=== PATIENT | male | born 1975 | race Caucasian/White ===

== ENCOUNTER 2016-07-17 21:12 | Emergency (ER) | payer SELFPAY ==
[~2016-07-17] VITALS: Ht 175.3 cm; Wt 80.0 kg
[2016-07-17 21:17] VITALS: BP 115/82; PULSE 151; RESP 24; TEMP 99.8; O2SAT 96
[2016-07-17 21:21] VITALS: RESP 24; O2SAT 95
[2016-07-17] MEDS ORDERED: SODIUM CHLOR 0.9% 1000 ML INJ 1,000 ML IV ONE (21:21)
[2016-07-17] MEDS ORDERED: LORazepam 2 MG/ML VIAL IVP ONE (21:30)
[2016-07-17] MEDS ORDERED: ONDANSETRON HCL 4 MG/2 ML VIAL IV PUSH ONE (21:30)
--- NOTE | 2016-07-17 21:33 | PD ---
HPI Chief Complaint: OD/ Ingestion Time Seen by Provider: 21:26 Travel History International Travel<30 days: No Contact w/Intl Traveler<30days: No Traveled to known affect area: No History of Present Illness HPI 41-year-old male that presents to the ED for evaluation of possible overdose. Patient states that he has a history of IV drug abuse. Patient apparently shot up what he thinks is heroine. Per ambulance patient was found to be very agitated and very anxious. Patient denies ever having a reaction like this before. Per patient he is not from the area and he recently came here the [facility]. Per the back patient was seeing himself a lot in his head and was given some IV fluids as well as Ativan in route here. He did not lose consciousness but does was acting more bizarre. Patient was found to be profoundly tachycardic with sinus tachycardia in the 150s. Patient was found to have no dilated pupils or any sign of an opiate overdose. Patient has no obvious allergies to medications. Patient denies any pain to me. Patient seems to be interacting possibly with internal stimuli versus hallucinations from medication overdose. History is somewhat limited because of patient's intoxication at this time. He denies any alcohol abuse. He denies any abdominal pain. No leg pain or arm pain. PFSH Past Medical History Medical History: Unable to Obtain Tetanus Vaccination: Unknown Influenza Vaccination: No Past Surgical History Surgical History: Unable to Obtain Social History Alcohol Use: No Tobacco Use: Yes Substance Use: Yes Allergies-Medications (Allergen,Severity, Reaction): Coded Allergies: No Known Allergies (Unverified , 07/17/16) Reported Meds & Prescriptions Reported Meds & Active Scripts Active Active Prescriptions or Reported Medications Unobtainable Review of Systems ROS Limitations: Intoxication General / Constitutional: No: Fever, Chills, Weight Gain, Weight Loss, Other Eyes: No: Diploplia, Blurred Vision, Photophobia, Drainage, Redness, Foreign Body Sensation, Pain, Tearing, Blind Spots, Visual changes, Blindness, Other HENT: No: Headaches, Vertigo, Lightheadedness, Sore Throat, Rhinitis, Rhinorrhea, Congestion, Nosebleed, Neck Stiffness, Neck Pain, Masses, Gingival Bleeding, Dental Difficulties, Ear Discharge, Earache, Other Cardiovascular: No: Chest Pain or Discomfort, Palpitations, Irregular Rhythm, Tachycardia, Diaphoresis, Syncope, Dyspnea on exertion, Varicosities, Edema, Cyanosis, Varicosities, Phlebitis, Claudication, Other Respiratory: No: Cough, Shortness of Breath, Wheezing, Sneezing, Orthopnea, Hemoptysis, Stridor, Night Sweats, Pleuritic Pain, Other Gastrointestinal: No: Nausea, Vomiting, Diarrhea, Abdominal Pain, Hematemesis, Hematochezia, Constipation, Changes in Bowel Habits, Indigestion, Dysphagia, Loss of Appetite, Other Genitourinary: No: Urgency, Frequency, Dysuria, Nocturia, Hematuria, Decreased Urinary Output, Oliguria, Hesitancy, Dribbling, Incontinence, Pelvic Pain, Flank Pain, Dyspareunia, Discharge, Dysmenorrhea, Menorrhagia, Metorrhagia, Vaginal Bleeding, Other Musculoskeletal: No: Myalgias, Arthralgias, Limited ROM, Weakness, Cramping, Edema, Pain, Atrophy, Other Skin: No Rash, No Itching, No Dryness, No Lumps, No Hives, No Change in Pigmentation, No Change in nails, No Alopecia, No Lesions, No Breast Lumps, No Breast Tenderness, No Breast Swelling, No Other Neurologic: No: Weakness, Dizziness, Syncope, Focal Abnormalities, Coordination Problem, Tremor, Ataxia, Headache, Change in Mentation, Slurred Speech, Paresthesia, Incontinence, Seizures, Sensory Disturbance, Other Psychiatric: Positive: Anxiety, Disorder of Thought, Substance Abuse Endocrine: No: Heat Intolerance, Cold Intolerance, Polyuria, Polydipsia, Other Hematologic/Lymphatic: No: Easy Bruising, Lymph Node Enlargement, Other Physical Exam Exam Limitations: Intoxication Narrative GENERAL: SKIN: Warm and dry. HEAD: Atraumatic. Normocephalic. EYES: Pupils equal and round 4 mm reactive to light and accommodation.. No scleral icterus. No injection or drainage. ENT: No nasal bleeding or discharge. Mucous membranes pink and moist. Tongue is midline. No uvula deviation. NECK: Trachea midline. No JVD. CARDIOVASCULAR: Regular rate and rhythm. No murmurs, S3, S4. RESPIRATORY: No accessory muscle use. Clear to auscultation. Breath sounds equal bilaterally. GASTROINTESTINAL: Abdomen soft, non-tender, nondistended. Hepatic and splenic margins not palpable. MUSCULOSKELETAL: Extremities without clubbing, cyanosis, or edema. No obvious deformities. Full range of motion of the upper and lower extremities bilaterally with no pain. 2+ pulses bilaterally. NEUROLOGICAL: Awake and alert. No obvious cranial nerve deficits. Motor grossly within normal limits. Five out of 5 muscle strength in the arms and legs. Normal speech. PSYCHIATRIC: Intoxicated and paranoid mood and affect; insight and judgment not present at this time Data Data Last Documented VS Vital Signs Date Time Temp Pulse Resp B/P Pulse Ox O2 Delivery O2 Flow Rate FiO2 07/17/16 21:21 151 24 95 Room Air 07/17/16: 99.8 115/82 Orders Electrocardiogram (07/17/16 21:17) Complete Blood Count With Diff (07/17/16 21:17) Comprehensive Metabolic Panel (07/17/16 21:17) Prothrombin Time / Inr (Pt) (07/17/16:17) Act Partial Throm Time (Ptt) (07/17/16 21:17) Urinalysis - C+S If Indicated (07/17/16 21:17) Iv Access Insert/Monitor (07/17/16 21:17) Ecg Monitoring (07/17/16 21:17) Oximetry (07/17/16 21:17) Drug Screen, Random Urine (07/17/16 21:17) Alcohol (Ethanol) (07/17/16 21:17) Salicylates (Aspirin) (07/17/16 21:17) Tylenol (Acetaminophen) (07/17/16 21:17) Lorazepam Inj (Ativan Inj) (07/17/16 21:30) Sodium Chlor 0.9% 1000 Ml Inj (Ns 1000 M (07/17/16 21:21) ^ Sitter (07/17/16 21:29) Ondansetron Inj (Zofran Inj) (07/17/16 21:30) Haloperidol Inj (Haldol Inj) (07/17/16 22:15) Haloperidol Inj (Haldol Inj) (07/17/16 22:01) Labs Laboratory Tests Test 07/17/16 21:20 White Blood Count 11.8 TH/MM3 Red Blood Count 5.55 MIL/MM3 Hemoglobin 15.9 GM/DL Hematocrit 46.2 % Mean Corpuscular Volume 83.2 FL Mean Corpuscular Hemoglobin 28.6 PG Mean Corpuscular Hemoglobin 34.4 % Concent Red Cell Distribution Width 13.2 % Platelet Count 181 TH/MM3 Mean Platelet Volume 8.4 FL Neutrophils (%) (Auto) 73.1 % Lymphocytes (%) (Auto) 18.7 % Monocytes (%) (Auto) 6.8 % Eosinophils (%) (Auto) 1.0 % Basophils (%) (Auto) 0.4 % Neutrophils # (Auto) 8.6 TH/MM3 Lymphocytes # (Auto) 2.2 TH/MM3 Monocytes # (Auto) 0.8 TH/MM3 Eosinophils # (Auto) 0.1 TH/MM3 Basophils # (Auto) 0.0 TH/MM3 CBC Comment DIFF FINAL Differential Comment Prothrombin Time 11.4 SEC Prothromb Time International 1.0 RATIO Ratio Activated Partial 24.6 SEC Thromboplast Time Sodium Level 142 MEQ/L Potassium Level 3.9 MEQ/L Chloride Level 108 MEQ/L Carbon Dioxide Level 25.8 MEQ/L Anion Gap 8 MEQ/L Blood Urea Nitrogen 14 MG/DL Creatinine 1.41 MG/DL Estimat Glomerular Filtration 55 ML/MIN Rate Random Glucose 113 MG/DL Calcium Level 8.3 MG/DL Total Bilirubin 0.5 MG/DL Aspartate Amino Transf 86 U/L (AST/SGOT) Alanine Aminotransferase 403 U/L (ALT/SGPT) Alkaline Phosphatase 87 U/L Total Protein 7.4 GM/DL Albumin 4.3 GM/DL Salicylates Level LESS THAN 1.7 MG/DL Acetaminophen Level LESS THAN 2.0 MCG/ML Ethyl Alcohol Level LESS THAN 3 MG/DL MDM Medical Decision Making Medical Screen Exam Complete: Yes Emergency Medical Condition: Yes Medical Record Reviewed: Yes Interpretation(s) CBC & BMP Diagram 07/17/16 21:20 LFts slightly elevated. Drug screen negative Differential Diagnosis Overdoses versus opiate overdose versus flack abuse versus substance abuse versus IV drug abuse versus tachycardia versus psychiatric illness Narrative Course 41-year-old male that presents to the ED for evaluation of overdose. Patient was properly examined and was found to have signs and symptoms consistent appears to be substance abuse at this time. Unclear as to what he used but I do not believe that this time this is heroin or opiate. Possible flakka. He appears to be cooperative at this time and at this time we'll do IV and labs as well as EKG. Patient was given 2 more of Ativan IV as well as 1 L of fluids. Case was discussed in my attending who agrees with plan. Patient will be monitored and will reevaluate as we get more information and his symptoms improved. Patient will be discharge to attending pending patient disposition. Scripts Unable to Obtain Active Prescriptions or Reported Meds Horace Tapia Jul 17, 2016 21:33
[2016-07-17] MEDS ORDERED: HALOPERIDOL LACTATE 5 MG/ML AMP ONE (22:01)
[2016-07-17 22:10] LABS: AUTOMATED NEUTROPHIL # 8.6 TH/MM3 (1.8-7.7); BASOPHIL % 0.4 % (0.0-2.0); EOSINOPHIL # 0.1 TH/MM3 (0-0.4); HEMATOCRIT 46.2 % (39.0-51.0); HEMO FLAGS DIFF FINAL; LYMPH % 18.7 % (9.0-44.0); LYMPHOCYTE # 2.2 TH/MM3 (1.0-4.8); MEAN CELL VOLUME 83.2 FL (80.0-100.0); MEAN CORPUSCULAR HEMOGLOBIN 28.6 PG (27.0-34.0); MEAN CORPUSCULAR HGB CONC 34.4 % (32.0-36.0); MONO % 6.8 % (0.0-8.0); NEUT % 73.1 % (16.0-70.0); PLATELET COUNT 181 TH/MM3 (150-450); RED BLOOD COUNT 5.55 MIL/MM3 (4.50-5.90); RED CELL DISTRIBUTION WIDTH 13.2 % (11.6-17.2); WHITE BLOOD COUNT 11.8 TH/MM3 (4.0-11.0)
[2016-07-17] MEDS ORDERED: HALOPERIDOL LACTATE 5 MG/ML AMP IM ONE (22:15)
[2016-07-17 22:25] LABS: ANION GAP 8 MEQ/L (5-15); APTT (PATIENT) 24.6 SEC (24.3-30.1); PROTHROMBIN TIME - PATIENT 11.4 SEC (9.8-11.6)
[2016-07-17 22:28] LABS: ACETAMINOPHEN LESS THAN 2.0 MCG/ML (10.0-30.0); ALKALINE PHOSPHATASE 87 U/L (45-117); ALT (GPT) 403 U/L (12-78); AST (GOT) 86 U/L (15-37); BICARBONATE 25.8 MEQ/L (21.0-32.0); BLOOD UREA NITROGEN 14 MG/DL (7-18); CHLORIDE 108 MEQ/L (98-107); GLOMERULAR FILTRATION RATE 55 ML/MIN (>89); POTASSIUM 3.9 MEQ/L (3.5-5.1); SODIUM (NA) 142 MEQ/L (136-145); TOTAL BILIRUBIN ADULT 0.5 MG/DL (0.2-1.0)
--- NOTE | 2016-07-17 22:51 | PD ---
Physical Exam Narrative General: The patient is well-developed well-nourished male in no acute distress. Head and Neck exam: Head is normocephalic atraumatic. Cardiovascular: Regular rate and rhythm without murmurs, gallops, or rubs. Lungs: Clear to auscultation bilaterally. No wheezes, rhonchi, or rales. Abdomen: Soft, without tenderness to palpation in all 4 quadrants of the abdomen. No guarding, rebound, or rigidity. Normal bowel sounds are audible. Extremities: No clubbing, cyanosis, or edema. Neurologic Exam: The patient is awake and alert. The patient reports that he is feeling improved and is requesting to be discharged. The patient has been up and walking around the room. The patient reports a history of attempting to get heroin from a new drug dealer, however he believes that he got another drug instead. Skin Exam: No rash noted. Intact skin that is warm and dry. Data Data Last Documented VS Vital Signs Date Time Temp Pulse Resp B/P Pulse Ox O2 Delivery O2 Flow Rate FiO2 07/18/16 02:59 98.1 82 16 132/66 100 Room Air Orders Electrocardiogram (07/17/16 21:17) Complete Blood Count With Diff (07/17/16 21:17) Comprehensive Metabolic Panel (07/17/16 21:17) Prothrombin Time / Inr (Pt) (07/17/16 21:17) Act Partial Throm Time (Ptt) (07/17/16 21:17) Urinalysis - C+S If Indicated (07/17/16 21:17) Iv Access Insert/Monitor (07/17/16 21:17) Ecg Monitoring (07/17/16 21:17) Oximetry (07/17/16 21:17) Drug Screen, Random Urine (07/17/16 21:17) Alcohol (Ethanol) (07/17/16 21:17) Salicylates (Aspirin) (07/17/16 21:17) Tylenol (Acetaminophen) (07/17/16 21:17) Lorazepam Inj (Ativan Inj) (07/17/16 21:30) Sodium Chlor 0.9% 1000 Ml Inj (Ns 1000 M (07/17/16 21:21) ^ Sitter (07/17/16 21:29) Ondansetron Inj (Zofran Inj) (07/17/16 21:30) Haloperidol Inj (Haldol Inj) (07/17/16 22:15) Haloperidol Inj (Haldol Inj) (07/17/16 22:01) Labs Laboratory Tests Test 07/17/16 07/18/16 21:20 02:45 White Blood Count 11.8 TH/MM3 Red Blood Count 5.55 MIL/MM3 Hemoglobin 15.9 GM/DL Hematocrit 46.2 % Mean Corpuscular Volume 83.2 FL Mean Corpuscular Hemoglobin 28.6 PG Mean Corpuscular Hemoglobin 34.4 % Concent Red Cell Distribution Width 13.2 % Platelet Count 181 TH/MM3 Mean Platelet Volume 8.4 FL Neutrophils (%) (Auto) 73.1 % Lymphocytes (%) (Auto) 18.7 % Monocytes (%) (Auto) 6.8 % Eosinophils (%) (Auto) 1.0 % Basophils (%) (Auto) 0.4 % Neutrophils # (Auto) 8.6 TH/MM3 Lymphocytes # (Auto) 2.2 TH/MM3 Monocytes # (Auto) 0.8 TH/MM3 Eosinophils # (Auto) 0.1 TH/MM3 Basophils # (Auto) 0.0 TH/MM3 CBC Comment DIFF FINAL Differential Comment Prothrombin Time 11.4 SEC Prothromb Time International 1.0 RATIO Ratio Activated Partial 24.6 SEC Thromboplast Time Sodium Level 142 MEQ/L Potassium Level 3.9 MEQ/L Chloride Level 108 MEQ/L Carbon Dioxide Level 25.8 MEQ/L Anion Gap 8 MEQ/L Blood Urea Nitrogen 14 MG/DL Creatinine 1.41 MG/DL Estimat Glomerular Filtration 55 ML/MIN Rate Random Glucose 113 MG/DL Calcium Level 8.3 MG/DL Total Bilirubin 0.5 MG/DL Aspartate Amino Transf 86 U/L (AST/SGOT) Alanine Aminotransferase 403 U/L (ALT/SGPT) Alkaline Phosphatase 87 U/L Total Protein 7.4 GM/DL Albumin 4.3 GM/DL Salicylates Level LESS THAN 1.7 MG/DL Acetaminophen Level LESS THAN 2.0 MCG/ML Ethyl Alcohol Level LESS THAN 3 MG/DL Urine Color YELLOW Urine Turbidity CLEAR Urine pH 5.5 Urine Specific [place] 1.021 Urine Protein TRACE mg/dL Urine Glucose (UA) NEG mg/dL Urine Ketones NEG mg/dL Urine Occult Blood NEG Urine Nitrite NEG Urine Bilirubin NEG Urine Urobilinogen LESS THAN 2.0 MG/DL Urine Leukocyte Esterase NEG Urine RBC LESS THAN 1 /hpf Urine WBC 2 /hpf Urine Squamous Epithelial <1 /hpf Cells Urine Hyaline Casts 37 /lpf Urine Mucus FEW /lpf Microscopic Urinalysis Comment CULT NOT INDICATED Urine Opiates Screen NEG Urine Barbiturates Screen NEG Urine Amphetamines Screen NEG Urine Benzodiazepines Screen NEG Urine Cocaine Screen NEG Urine Cannabinoids Screen NEG MDM Medical Record Reviewed: Yes Supervised Visit with LUCY: No Differential Diagnosis Illicit drug ingestion, versus withdrawal syndrome, versus psychiatric disorder Narrative Course During the course of the patients emergency department visit, the patients history, examination, and differential diagnosis were reviewed with the patient. The patient had IV access obtained and blood work sent for analysis. The patient's case was checked out to me by Torito. He requested that I review the patient's laboratory studies and reexamined the patient for improvement in his mentation. The patient came into the emergency department after using illicit drugs. The patient came in agitated, tachycardic. The patient was provided Ativan, Haldol for acute agitation. The patient then began to rest comfortably. The patients laboratory studies were reviewed and remarkable for a CBC that shows a white count of 11.8, hemoglobin 15.9, platelets 181 with neutrophils 73.1, CMP is remarkable for chloride of 108, creatinine 1.41, glucose 113, AST 86, ALT 403, PT PTT unremarkable. Urinalysis is unremarkable, salicylate is less than 1.7, acetaminophen less than 2, urine drug screen negative, alcohol less than 3. The patient began to request to leave as he became more awake and alert. The patient on reexamination was alert and oriented to person, place, time, and situation. The patient's vital signs had normalized. The patient will be discharged home. The patient is resting comfortably and feels better, is alert and in no distress. The patients results and examination findings were discussed with him. The repeat examination is unremarkable and benign. The history, exam, diagnostic testing, and current condition do not suggest any significant pathology to warrant further testing, continued ED treatment, admission, or surgical evaluation at this point. The vital signs have been stable. The patient does not have uncontrollable pain, intractable vomiting, or other significant symptoms. The patient's condition is stable and appropriate for discharge. The patient will pursue further outpatient evaluation with a primary care physician or other designated or consulting physician as indicated in the discharge instructions. The patient expressed understanding and was agreeable with this plan. Diagnosis Primary Impression: Illicit drug use Additional Impression: Agitation Referrals: Primary Care Physician as needed Patient Instructions: General Instructions Additional Instruction: Avoid all illicit drugs Scripts Unable to Obtain Active Prescriptions or Reported Meds Disposition: 01 DISCHARGE HOME Condition: Stable Mague Bonilla MD Jul 17, 2016 22:51
[2016-07-18 02:59] VITALS: BP 132/66; PULSE 82; RESP 16; TEMP 98.1; O2SAT 100
[2016-07-18 03:18] LABS: AMPHETAMINE, URINE NEG (NEG); BARBITURATES, URINE NEG (NEG); COCAINE, URINE NEG (NEG)
[2016-07-18 03:26] LABS: BLOOD, URINE NEG (NEG); COMMENT (UR) CULT NOT INDICATED; CULTURE IF INDICATED CULT NOT INDICATED; GLUCOSE,URINE NEG (NEG); HYALINE CAST, URINE 37 /lpf (RARE); KETONE, URINE NEG (NEG); MUCUS URINE FEW /lpf (OCC); NITRITE,URINE NEG (NEG); PH, URINE 5.5 (5.0-8.5); SQUAMOUS EPITHELIAL CELL URINE <1 /hpf (0-5); URINE COLOR YELLOW (YELLW/STRAW)
--- NOTE | 2016-07-18 21:24 | EKG ---
Date Performed: 07/17/2016 Time Performed: 21:17:48 PTAGE: 41 years EKG: SINUS TACHYCARDIA, POSSIBLE ATRIAL FLUTTER ABNORMAL ECG INTERPRETATION BASED ON A DEFAULT A GE OF 40 YEARS NO PREVIOUS TRACING DOCTOR: John Mancuso Interpretating Date/Time 07/18/2016 21:22:59
== END 2016-07-18 03:30 | disposition home or self-care (01) ==
LOC: NEPC 21:12
DX: F19.129 Other psychoactive substance abuse with intoxication, unspecified (principal); R94.31 Abnormal electrocardiogram [ECG] [EKG]; Z72.0 Tobacco use
CPT/HCPCS: 80053; 80307; 80320; 81001; 85025; 85610; 85730; 93005; 96360; 96372; 96374; 96375; 99284; J1630; J2060; J2405; J7030; 80329; G0480